=== PATIENT | male | born 1940 | race Caucasian/White ===

== ENCOUNTER → 2016-09-25 | Outpatient (CLI) | payer MEDICARE ==
[2016-09-25 14:56] LABS: Basophils # (A) 0.1 k/uL (0-0.2); Basophils % (A) 1 %; CH 31.6; Eosinophils # (A) 0.4 k/uL (0-0.7); Eosinophils % (A) 5 %; HDW 2.74; Luc # (Auto) 0.23; Luc % (Auto) 3; Lymphocytes # (A) 2.1 k/uL (1.0-4.8); Lymphocytes % (A) 30 %; MCH 30.9 pg (25.0-35.0); MCV 96.6 fL (80.0-100.0); Mean Platelet Volume 7.3; Monocytes # (A) 0.5 k/uL (0-1.0); Monocytes % (A) 8 %; Neutrophils # (A) 3.7 k/uL (1.3-7.7); Neutrophils % (A) 53 %; RBC 5.17 m/uL (4.30-5.90); RDW 14.6 % (11.5-15.5); WBC 6.9 k/uL (3.8-10.6); WBC (Perox) 6.37
[2016-09-25 15:02] LABS: INR 3.4 (<1.1); Prothrombin Time 32.8 sec (9.0-12.0)
[2016-09-25 15:11] LABS: Anion Gap 10 mmol/L; Blood Urea Nitrogen 21 mg/dL (9-20); Carbon Dioxide 28 mmol/L (22-30); Chloride 105 mmol/L (98-107); Non-African American GFR(MDRD) >60 (>60 ml/min/1.73 sqM); Potassium 4.5 mmol/L (3.5-5.1); Sodium 143 mmol/L (137-145)
== END | disposition home or self-care (01) ==
LOC: LABWHC1 14:34
PROVIDERS: ATTEND Internal Medicine Interventional Cardiology
DX: Z01.812 Encounter for preprocedural laboratory examination (principal); I10 Essential (primary) hypertension; I34.0 Nonrheumatic mitral (valve) insufficiency; I42.8 Other cardiomyopathies; Z79.01 Long term (current) use of anticoagulants
CPT/HCPCS: 36415; 80051; 82565; 84520; 85025; 85610

== ENCOUNTER → 2016-12-26 | Outpatient (CLI) | payer MEDICARE ==
[2016-12-26 10:19] LABS: CHCM 33.5; HCT 47.2 % (39.0-53.0); HDW 2.88; HGB 16.3 gm/dL (13.0-17.5); MCH 32.1 pg (25.0-35.0); MCHC 34.5 g/dL (31.0-37.0); Mean Platelet Volume 7.9; RBC 5.08 m/uL (4.30-5.90); RDW 14.1 % (11.5-15.5); WBC 7.1 k/uL (3.8-10.6)
[2016-12-26 10:41] LABS: Anion Gap 8 mmol/L; Blood Urea Nitrogen 19 mg/dL (9-20); Calcium 9.3 mg/dL (8.4-10.2); Carbon Dioxide 27 mmol/L (22-30); Chloride 104 mmol/L (98-107); Glucose 106 mg/dL (74-99); Non-African American GFR(MDRD) >60 (>60 ml/min/1.73 sqM); Sodium 139 mmol/L (137-145)
== END | disposition home or self-care (01) ==
LOC: LABWHC1 09:32
PROVIDERS: ATTEND Internal Medicine Clinical Cardiac Electrophysiology
DX: I50.9 Heart failure, unspecified (principal)
CPT/HCPCS: 36415; 80048; 85027

== ENCOUNTER → 2016-12-30 | Outpatient (CLI) | payer MEDICARE ==
[2016-12-30 11:54] LABS: Anion Gap 9 mmol/L; Blood Urea Nitrogen 18 mg/dL (9-20); Carbon Dioxide 27 mmol/L (22-30); Chloride 102 mmol/L (98-107); Non-African American GFR(MDRD) >60 (>60 ml/min/1.73 sqM); Potassium 5.5 mmol/L (3.5-5.1); Sodium 138 mmol/L (137-145)
== END | disposition home or self-care (01) ==
LOC: LABWHC1 11:08
PROVIDERS: ATTEND Internal Medicine Interventional Cardiology
DX: E87.5 Hyperkalemia (principal)
CPT/HCPCS: 36415; 80051; 82565; 84520

== ENCOUNTER 2017-01-06 12:23 | Day surgery (SDC) | payer MEDICARE ==
[2017-01-02 11:13] VITALS: BMI 28.3
[~2017-01-06 12:23] MED LIST: HYDROmorphone 0.5 MG/0.5 ML SYRINGE IVP PRN; LACTATED RINGERS 1,000 ML IV SCH; MIDAZOLAM 2 MG/2 ML VIAL IV PRN; ONDANSETRON 4 MG/2 ML VIAL IVP ONE; SODIUM CHLORIDE 0.9% 1,000 ML IV SCH; ceFAZolin 2 GM in SODIUM CHLORIDE 0.9% 100 ML IVPB ONE
[2017-01-06 13:20] LABS: INR 2.1 (<1.2); Prothrombin Time 20.5 sec (9.0-12.0)
[2017-01-06] MEDS ORDERED: IV FLUID CONTINUATION 1,000 ML IV ONE (14:20)
[2017-01-06] MEDS ORDERED: MIDAZOLAM 2 MG/2 ML VIAL ONE (14:20)
[2017-01-06] MEDS ORDERED: LIDOCAINE 1% INJ 10MG/ML (20 ML MDV) ONE (14:20)
[2017-01-06] MEDS ORDERED: PROPOFOL 10 MG/ML 20 ML VIAL IV ONE (14:20)
[2017-01-06] MEDS ORDERED: fentaNYL (PF) 50 MCG/ML 2 ML AMP ONE (14:20)
[2017-01-06] MEDS ORDERED: MEPERIDINE 50 MG/ML SYRINGE ONE (14:20)
[2017-01-06] MEDS ORDERED: LIDOCAINE 2% INJ 20 MG/ML SQ ONE ×2 (15:08→15:18)
[2017-01-06] MEDS: ceFAZolin 1,000 MG in SODIUM CHLORIDE 0.9% IRRIGATIO 250 ML IRRIGATION ONE ×2 (15:12→16:28)
[2017-01-06] MEDS ORDERED: IOHEXOL 350 MG/ML 50ML BOTTLE INJ ONE (15:40)
--- NOTE | 2017-01-06 17:33 | P.HPCAR ---
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 Rather there is been progressively worsening over the years in his left ventricular systolic function. 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 today for heart failure management, management of bradycardia and risk of sudden cardiac in the future Plan Maximize heart failure medications and beta blockers See full dictation faxed from the office Physical Exam Vitals: Vital Signs Temp Pulse Resp BP Pulse Ox 01/06/17 12:59 97.9 F 95 20 137/75 95 Intake and Output 01/06/17 01/06/17 01/06/17 06:59 14:59 22:59 Intake Total 450 100 Balance 450 100 Intake: IV 450 100 Past Medical History Past Medical History: Atrial Fibrillation, Cancer, Chest Pain / Angina, Eye Disorder, Hearing Disorder / Deafness, Hyperlipidemia, Musculoskeletal Disorder , Skin Disorder, Sleep Apnea/CPAP/BIPAP Additional Past Medical History / Comment(s): DIZZINESS, NEUROPATHY IN FEET, LOSES BALANCE. SOB @times, USES CPAP. HX CA SKIN. TORN BICEP MUSCLE NATE, ALONG W/ ROTATOR CUFF TEARS. RASH RT UPPER ARM, uses CPAP, see DR Edgar H & P , currently infected molar-supposed to start antibiotic History of Any Multi-Drug Resistant Organisms: None Reported Past Surgical History: Bowel Resection, Heart Catheterization, Hernia Repair, Orthopedic Surgery Additional Past Surgical History / Comment(s): LT KNEE. CARDIOVERSION, IAN Past Anesthesia/Blood Transfusion Reactions: Motion Sickness Smoking Status: Former smoker - Past Family History Mother Family Medical History: No Reported History Physical Examination Vital Signs Temp Pulse Resp BP Pulse Ox 01/06/17 12:59 97.9 F 95 20 137/75 95 Intake and Output 01/06/17 01/06/17 01/06/17 06:59 14:59 22:59 Intake Total 450 100 Balance 450 100 Intake: IV 450 100 Results 01/06/17 12:53 Coagulation 01/06/17 Range/Units 12:53 PT 20.5 H (9.0-12.0) sec Comprehensive Metabolic Panel 01/06/17 Range/Units 12:53 Potassium 4.6 (3.5-5.1) mmol/L Current Medications Generic Name Dose Route Start Last Admin Trade Name Freq PRN Reason Stop Dose Admin Hydromorphone HCl 0.5 mg 01/06/17 08:04 Dilaudid Syringe IVP 01/07/17 08:05 Q5M PRN Pain Control Sodium Chloride 1,000 mls @ 20 mls/hr 01/06/17 08:04 Saline 0.9% IV .Q24H SRIRAM Lactated Ringer's 1,000 mls @ 20 mls/hr 01/06/17 08:04 Lactated Ringers IV .Q24H SRIRAM Midazolam HCl 2 mg 01/06/17 08:04 Versed IV 01/07/17 08:05 ONCE PRN Anxiety Intake and Output 01/06/17 01/06/17 01/06/17 06:59 14:59 22:59 Intake Total 450 100 Balance 450 100 Intake: IV 450 100 01/06/17 12:53
[2017-01-06] MEDS ORDERED: HYDROcodone/APAP 5-325MG 1 EACH TAB PO PRN (17:36)
[2017-01-06] MEDS ORDERED: ACETAMINOPHEN TAB 325 MG TAB PO PRN (17:36)
[2017-01-06] MEDS ORDERED: ACETAMINOPHEN IV (For NPO) 1,000 MG in EMPTY BAG 1 BAG IVPB ONE (17:45)
[2017-01-06 17:53] VITALS: RESP 18
[2017-01-06] MEDS: METOPROLOL SUCCINATE (ER) 100 MG TAB.ER.24H PO SCH (18:28)
--- NOTE | 2017-01-06 18:32 | CE ---
CARDIAC ELECTROPHYSIOLOGY REPORT 76 -year-old female patient of Dr. Gilma Jones and Dr. Sheehan who has severe cardiomyopathy, predominantly nonischemic with class 2-3 heart failure symptoms and severe tachybrady syndrome with severe bradycardia necessitating reduction in dose of beta blockers. He underwent a Bi-V ICD implantation today. He has permanent atrial fibrillation. Patient brought to the EP lab in a fasting state. Written informed consent was obtained prior to the procedure. The left shoulder area was prepped and draped as per protocol. 1% lidocaine used for local anesthesia. 4 cm incision was made parallel to the deltopectoral groove. A 1.5 cm medial to the incision was carried down to the level of the pectoralis muscle. A subfascial pocket was made. Hemostasis was assured. The left axillary vein was accessed at 2 separate points under fluoroscopy and via appropriately-sized introducer sheaths 2 leads were positioned. The RV lead was positioned just close to the RV apex. This was a [employer] unit leader, model #[id number], 58 cm in length and serial number [id number]. The R-waves were 8.9 mV, pacing impedance was 643 ohms, pacing threshold 0.7 V at 0.5 milliseconds. 10v test was negative. The LV lead was positioned in the anterior vein. The coronary sinus was tortuous, both at the origin of the coronary sinus os as well as in the mid coronary sinus. He had a middle cardiac vein, posterolateral vein, a small lateral vein and a large anterior vein and the anterior was targeted and the lead was placed in a very stable position with excellent thresholds and sensing and without any diaphragmatic stimulation. R-waves 27 millivolts, pacing impedance 1460 ohms, threshold 1.25 V at 0.5 milliseconds. 10 volt test was negative. Both leads were secured to the underlying pectoralis fascia using 2 nonabsorbable sutures. The pocket was irrigated with antibiotic solution. Leads were connected to generator. The leads were connected to the generator ([employer] model number CD 3369-40 Q serial #[id number]). The leads and the generator were then placed in the subfascial pocket. The wound was closed in 3 layers and dressed per protocol. PROGRAMMING: The device was programmed according to programming. In addition VVT programming with an LV offset of 15 milliseconds was programmed. Please note the atrial port was plugged. The device was secured to the underlying pectoralis muscle. Patient tolerated the procedure well without acute complication. RESULT: Successful Bi-V ICD implantation for permanent atrial fibrillation with tachybrady syndrome. Congestive heart failure class 2-3 with progressively worsening symptoms. Nonischemic cardiomyopathy with underlying nonobstructive coronary artery disease, moderate mitral regurgitation. PLAN: Maximize beta blockers. Patient also has a history of hyperkalemia, hopefully with IV pacing and with Bi-V pacing his renal perfusion may improve. Coumadin will be on hold for 24 hours. MMODL / IJN: [id number] /
[2017-01-06] MEDS ORDERED: ASPIRIN 81 MG PO SCH (21:00)
[2017-01-06] MEDS ORDERED: PRAVASTATIN SODIUM 40 MG TAB PO SCH (21:00)
[2017-01-06] MEDS ORDERED: LOSARTAN 50 MG TAB PO SCH (21:00)
[2017-01-06] MEDS: ceFAZolin 2 GM in SODIUM CHLORIDE 0.9% 100 ML IVPB SCH (21:39)
[2017-01-07] MEDS: ceFAZolin 2 GM in SODIUM CHLORIDE 0.9% 100 ML IVPB SCH ×3 (03:29→13:56)
--- NOTE | 2017-01-07 07:49 | XR ---
EXAMINATION TYPE: XR chest 2V DATE OF EXAM: 01/07/2017 COMPARISON: NONE HISTORY: Post pacemaker insertion for arrhythmia. TECHNIQUE: Frontal and lateral views of the chest are obtained. FINDINGS: There is chronic parenchymal change without suspicious focal air space opacity, pleural ef fusion, or pneumothorax seen. The cardiac silhouette size is within normal limits. There is dual spring d pacemaker/AICD with defibrillator lead in the right ventricle and pacer lead in the coronary sinus. The osseous structures are intact. IMPRESSION: New dual lead pacemaker with leads in right ventricle and coronary sinus. No evidence of complication related to pacemaker placement.
[2017-01-07] MEDS: METOPROLOL SUCCINATE (ER) 100 MG TAB.ER.24H PO SCH (08:31)
[2017-01-07 11:38] VITALS: BP 103/67; PULSE 71; TEMP 97.6
--- NOTE | 2017-01-07 12:39 | P.DS ---
Providers Attending physician: Jose Cruz Edgar Primary care physician: Stated None Hospital Course: Patient is doing well. No chest discomfort no shortness of breath lying comfortably in bed no hematoma no bruising Breath sounds are normal no rhonchi no crackles Heart sounds are normal no rub no gallop Blood pressure 106/64 mmHg pulse rate in the 70s, afebrile 97.6F Impression Predominant nonischemic cardio myopathy, permanent atrial fibrillation with bradycardia, left bundle branch block morphology status post biventricular ICD Biventricular ICD function is within normal limits, chest x-ray report reviewed Plan Discharge home after completion of IV antibiotics and follow-up in the office in [address] Jones in about 7-10 days for maximization of rate controlling medications Metoprolol tartrate has been discontinued, started on metoprolol succinate 100 mg by mouth daily. Plan - Discharge Summary New Discharge Prescriptions: No Action Pravastatin Sodium [Pravachol] 40 mg PO HS Metoprolol Tartrate [Lopressor] 50 mg PO BID Warfarin [Coumadin] 5 mg PO SUWEFR Losartan [Cozaar] 50 mg PO HS Warfarin [Coumadin] 7.5 mg PO MOTUTHSA Aspirin EC [Ecotrin Low Dose] 81 mg PO HS Neuro B-800 2 tab PO DAILY Discharge Medication List Aspirin EC [Ecotrin Low Dose] 81 mg PO HS 09/30/16 [History] Losartan [Cozaar] 50 mg PO HS 09/30/16 [History] Metoprolol Tartrate [Lopressor] 50 mg PO BID 09/30/16 [History] Pravastatin Sodium [Pravachol] 40 mg PO HS 09/30/16 [History] Warfarin [Coumadin] 5 mg PO SUWEFR 09/30/16 [History] Warfarin [Coumadin] 7.5 mg PO MOTUTHSA 09/30/16 [History] Neuro B-800 2 tab PO DAILY 01/02/17 [History] Follow up Appointment(s)/Referral(s): Roger Jones MD [STAFF PHYSICIAN] - 1 Week (Office to call with appointment. )
== END 2017-01-07 15:30 | disposition home or self-care (01) ==
LOC: CATHEP 12:23 → 3OBS 16:46 → CATHEP 01-07 15:30
PROVIDERS: ATTEND Internal Medicine Clinical Cardiac Electrophysiology
DX: I49.5 Sick sinus syndrome (principal); I48.2 Chronic atrial fibrillation; Z79.01 Long term (current) use of anticoagulants; Z00.6 Encounter for examination for normal comparison and control in clinical research program; I42.0 Dilated cardiomyopathy; I44.7 Left bundle-branch block, unspecified; I34.0 Nonrheumatic mitral (valve) insufficiency; Z95.0 Presence of cardiac pacemaker; Z87.891 Personal history of nicotine dependence; I11.0 Hypertensive heart disease with heart failure; I50.22 Chronic systolic (congestive) heart failure; Z82.49 Family history of ischemic heart disease and other diseases of the circulatory system; E78.5 Hyperlipidemia, unspecified; G47.30 Sleep apnea, unspecified; Z99.89 Dependence on other enabling machines and devices; K04.7 Periapical abscess without sinus; Z79.82 Long term (current) use of aspirin; Z79.899 Other long term (current) drug therapy; Z88.8 Allergy status to other drugs, medicaments and biological substances
CPT/HCPCS: 33225; 33249; 84132; 85610; 71020; C1769 ×3; C1892; C1730; C1900; C1777; C1882; J2001 ×2; J2250; J2175; J0690 ×3; J3010; J0131; J2704; Q9967

== ENCOUNTER → 2017-10-01 | Outpatient (CLI) | payer MEDICARE ==
[2017-10-01 14:53] LABS: Calcium 9.1 mg/dL (8.4-10.2); Potassium 4.9 mmol/L (3.5-5.1)
== END | disposition home or self-care (01) ==
LOC: LABWHC1 13:26
PROVIDERS: ATTEND Internal Medicine Clinical Cardiac Electrophysiology
DX: I48.91 Unspecified atrial fibrillation (principal)
CPT/HCPCS: 36415; 80048; 84443

== ENCOUNTER 2017-11-03 12:02 | Day surgery (SDC) | payer MEDICARE ==
[2017-10-31 13:16] VITALS: BMI 28.2
[2017-11-03] MEDS ORDERED: ceFAZolin IN SWFI 2 GM/20 ML SYRINGE IVP STA (12:13)
[2017-11-03] MEDS: SODIUM CHLORIDE 0.9% 1,000 ML IV SCH (12:34)
[2017-11-03 12:44] LABS: Basophils % (A) 0 %; Eosinophils # (A) 0.1 k/uL (0-0.7); Eosinophils % (A) 1 %; HCT 46.3 % (39.0-53.0); HGB 15.2 gm/dL (13.0-17.5); Lymphocytes % (A) 18 %; MCH 30.6 pg (25.0-35.0); MCHC 32.8 g/dL (31.0-37.0); MCV 93.1 fL (80.0-100.0); Mean Platelet Volume 7.1; Monocytes # (A) 0.9 k/uL (0-1.0); Monocytes % (A) 8 %; Neutrophils # (A) 7.9 k/uL (1.3-7.7); Neutrophils % (A) 70 %; Platelet Count 235 k/uL (150-450); RBC 4.97 m/uL (4.30-5.90); RDW 13.8 % (11.5-15.5); WBC 11.3 k/uL (3.8-10.6)
[2017-11-03 12:54] LABS: INR 2.8 (<1.2); Prothrombin Time 25.4 sec (9.0-12.0)
[2017-11-03 13:06] LABS: Calcium 9.2 mg/dL (8.4-10.2); Potassium 4.7 mmol/L (3.5-5.1)
[2017-11-03] MEDS ORDERED: fentaNYL (PF) 50 MCG/ML 2 ML AMP ONE (16:37)
[2017-11-03] MEDS ORDERED: MIDAZOLAM 2 MG/2 ML VIAL ONE (16:37)
[2017-11-03] MEDS ORDERED: LIDOCAINE 1% INJ 10MG/ML (20 ML MDV) ONE (16:51)
[2017-11-03] MEDS ORDERED: LIDOCAINE 1% INJ 10MG/ML (20 ML MDV) SQ ONE (17:19)
[2017-11-03] MEDS ORDERED: ACETAMINOPHEN IV (For NPO) 1,000 MG in EMPTY BAG 1 BAG IVPB ONE (17:53)
[2017-11-03] MEDS ORDERED: ACETAMINOPHEN TAB 325 MG TAB PO PRN (17:53)
[2017-11-03] MEDS ORDERED: HYDROcodone/APAP 5-325MG 1 EACH TAB PO PRN (17:53)
--- NOTE | 2017-11-03 17:58 | P.PCN ---
Preoperative Diagnosis: Indication for the procedure A. fib with RVR refractory to drug therapy despite 400 mg of metoprolol succinate Very low Bi V pacing percentage Procedure: Device interrogation with reprogramming prior to the procedure AV Node Ablation/modification. Device interrogation with reprogramming postprocedure Patient was brought to the EP lab in a fasting state. Written, informed consent was obtained prior to the procedure. Access was obtained, sheath placed in right femoral vein. 1. Preprocedure device interrogation and reprogramming Device interrogation with reprogramming performed. Rate responsiveness was turned off and the pacing rate was reprogrammed to a backup mode prior to ablation. Tachycardia detections turned off. Lead impedance is documented, sensing and pacing thresholds performed prior to the procedure Backup pacing, VVI 40 bpm 3. AV node ablation A Mapping/Ablation catheter was placed and right-sided AV node radiofrequency ablation/modification was performed. Complete heart block was achieved with occasional junctional escape rhythm above 40 bpm 4. Device programming postprocedure Post ablation, device reprogramming was performed. Base Pacing rate was programmed to 90 bpm. Patient's device was reprogrammed and the interrogated. RF mode turned on Vascular sheaths were removed at the end of the procedure, hemostasis was assured, the patient was then transferred to recovery room/telemetry in stable condition. Conclusions: Successful ablation of the AV node. Plan: Pacing at 90 bpm for at least 3 weeks. Telemetry monitoring for 24-48 hours. Continue anticoagulation. Patient tolerated the procedure well without any acute complications Anesthesia: MAC Condition: stable Disposition: observation
[2017-11-03] MEDS ORDERED: WARFARIN 5 MG TAB PO SCH (18:15)
[2017-11-03] MEDS: METOPROLOL SUCCINATE (ER) 100 MG TAB.ER.24H PO SCH (20:08)
[2017-11-03] MEDS ORDERED: LOSARTAN 50 MG TAB PO SCH (21:00)
[2017-11-03] MEDS ORDERED: CITALOPRAM HYDROBROMIDE 10 MG TAB PO SCH (21:00)
[2017-11-03] MEDS ORDERED: PRAVASTATIN SODIUM 40 MG TAB PO SCH (21:00)
[2017-11-04 04:27] VITALS: PULSE 90
[2017-11-04] MEDS: SODIUM CHLORIDE 0.9% 1,000 ML IV SCH (05:44)
[2017-11-04 07:27] VITALS: BP 121/81; RESP 18; TEMP 98.4
--- NOTE | 2017-11-04 08:36 | P.DS ---
Providers Attending physician: Jose Cruz Edgar Primary care physician: Ross [facility], [facility] Course: Patient is doing well. He is sitting up comfortably in bed. No chest discomfort no shortness of breath no palpitations. His groins have healed well On examination he is afebrile 98.4F, pulse rate 90 has programmed Blood pressure 121/81 mmHg Breath sounds are clear no rhonchi no crackles Heart sounds are regular no murmurs or gallop Abdomen is soft Impression Permit atrial fibrillation Cardio myopathy with at least class II congestive heart failure Status post eye ventricular ICD in the past A. fib with RVR with poor rate control despite high dose beta blockers AV junction modification to facilitate 100% Bi V pacing to maximize heart failure management/therapies Kulkarni line discharge home today in follow-up in the device clinic in 2 weeks for bilateral total ICD reprogramming Follow Dr. Jones as previously scheduled Patient Condition at Discharge: Stable Plan - Discharge Summary New Discharge Prescriptions: New Metoprolol Succinate [Toprol Xl] 100 mg PO BID #90 tab.er.24h Discontinued Metoprolol Tartrate [Lopressor] 100 mg PO TID No Action Pravastatin Sodium [Pravachol] 40 mg PO HS Warfarin [Coumadin] 5 mg PO MOTHSA Warfarin [Coumadin] 7.5 mg PO SUTUWEFR Losartan [Cozaar] 50 mg PO HS Citalopram Hydrobromide [CeleXA] 10 mg PO HS Acetaminophen [Tylenol Extra Strength] 500 mg PO Q12H PRN PRN Reason: Pain Discharge Medication List Pravastatin Sodium [Pravachol] 40 mg PO HS 09/30/16 [History] Warfarin [Coumadin] 5 mg PO MOTHSA 09/30/16 [History] Warfarin [Coumadin] 7.5 mg PO SUTUWEFR 09/30/16 [History] Acetaminophen [Tylenol Extra Strength] 500 mg PO Q12H PRN 10/31/17 [History] Citalopram Hydrobromide [CeleXA] 10 mg PO HS 10/31/17 [History] Losartan [Cozaar] 50 mg PO HS 10/31/17 [History] Metoprolol Succinate [Toprol Xl] 100 mg PO BID #90 tab.er.24h 11/03/17 [Rx] Follow up Appointment(s)/Referral(s): Roger Jones MD [STAFF PHYSICIAN] - 2 Weeks (Device clinic follow-up in 2 weeks for ICD reprogramming and a groin check Follow-up with Dr. Jones as previously scheduled) Activity/Diet/Wound Care/Special Instructions: Post EP study - Ablation instructions 1. Keep access sites dry for 2 days. 2. No heavy lifting or straining for 2 days. 3. Avoid bending the hips repeatedly for 2 days. 4. You may go up and down stairs slowly Call if the following is noted 1. Bleeding, increasing swelling or pain at the access sites. 2. Increasing chest discomfort, especially upon taking a deep breath. 3. Increasing shortness of breath, at rest or with exertion. 4. Undue cough / phlegm 5. Difficulty or pain while swallowing. 6. Pain or change in color in the extremities. 7. Fever, chills, rigors. 8. Increasing headache or neurologic symptoms. 9. Dizziness, fainting, palpitations Reduce metoprolol to succinate to 100 mg by mouth daily Discharge Disposition: HOME SELF-CARE
[2017-11-04] MEDS: METOPROLOL SUCCINATE (ER) 100 MG TAB.ER.24H PO SCH (08:42)
[2017-11-04] MEDS ORDERED: WARFARIN 7.5 MG TAB PO SCH (18:00)
== END 2017-11-04 10:38 | disposition home or self-care (01) ==
LOC: CATHEP 12:02 → 6PED 18:01 → 3OBS 18:06 → CATHEP 11-04 10:38
PROVIDERS: ATTEND Internal Medicine Clinical Cardiac Electrophysiology
DX: I48.2 Chronic atrial fibrillation (principal); I42.9 Cardiomyopathy, unspecified; I11.0 Hypertensive heart disease with heart failure; I50.9 Heart failure, unspecified; Z87.891 Personal history of nicotine dependence; G47.33 Obstructive sleep apnea (adult) (pediatric); Z79.01 Long term (current) use of anticoagulants; Z79.899 Other long term (current) drug therapy; Z95.810 Presence of automatic (implantable) cardiac defibrillator
CPT/HCPCS: 93650; 93281; 80048; 85025; 85610; C1894; C1769 ×2; C1733; C1893; J2001; J0690

== ENCOUNTER → 2017-11-04 | Outpatient (CLI) | payer MEDICARE ==
--- NOTE | 2017-11-04 18:08 | CONS ---
CONSULTATION REASON FOR CONSULTATION: Consultation note for sleep apnea. This is a 77-year-old male patient, who is coming to see me regarding his obstructive sleep apnea. He was diagnosed having obstructive sleep apnea many years back and currently is using a Resmet air sense which is set at a pressure of 10 cm of water. The patient is known to have atrial fibrillation. He has undergone cardiac ablation. He is also known to have hypertension and hyperlipidemia. His weight has been essentially stable over the past 10 years. He is currently on a CPAP pressure of 10 on. The compliance data from his CPAP machine indicates that the patient has been utilizing his CPAP on average of 8 hours per night and his CPAP use for more than 4 hours is 100% and his air leak is in order of 14 L/minute. His AHI while on treatment is down to 0.9. He is currently using a Clayton FX small nose mask. No excessive fatigue or sleepiness during the day. No snoring while on CPAP therapy. No apneas while on CPAP therapy. No insomnia. No choking or gasping for air. No grinding. No sleepwalking. No dry mouth. No anxiety or panic attacks. No palpitation. No heartburn. No restlessness in lower extremities. He goes to bed around 9:30 p.m., wakes up 4:30-5:30 a.m. in the morning and he is well refreshed. He does not fall asleep while driving his car or while he does any other activities. PAST MEDICAL HISTORY: 1. Obstructive sleep apnea. 2. Atrial fibrillation. 3. Hypertension. 4. Hyperlipidemia. PAST SURGICAL HISTORY: Includes surgical ablation of atrial fibrillation. AICD implantation and cataracts. DRUG ALLERGIES: DRUG ALLERGIES ARE TO VERAPAMIL. OUTPATIENT MEDICATION LIST: Includes warfarin 7.5 mg 1 and half tablets on Friday, Friday, Wednesdays and Fridays and 1 tab the rest of the week, Cozaar 50 mg p.o. daily, Lopressor 100 mg p.o. twice a day, Pravachol 40 mg p.o. daily and citalopram 10 mg p.o. daily. SOCIAL HISTORY: Nonsmoker. No history of alcohol, no history of IV drugs. FAMILY HISTORY: Negative for sleep apnea. REVIEW OF SYSTEMS: 12-point review of system was done. Positive findings are mentioned above history of present illness. Otherwise negative. PHYSICAL EXAMINATION: BP is 104/72, pulse 80, respirations 16, temp 97.6. Saturation 96% on room air. Neck size 17 inches. BMI 28.4. [place] score is 810. Weight is 208. Height is 5 feet 11 inches. General appearance: Calm, comfortable. Head is atraumatic, normocephalic. NECK: Supple. Mallampati class IV. There is no goiter or neck masses. LUNGS: Clear to auscultation. HEART: Sounds regular rate and rhythm. Normal S1, S2. No S3. No murmurs. ABDOMEN: Soft, nontender. No organomegaly. EXTREMITIES: No edema. No cyanosis or clubbing. Neurologic: Alert and oriented x3. No focal neurological deficits. PSYCHIATRIC: Negative for anxiety or depression. IMPRESSION: 1. Obstructive sleep apnea successfully treated with a CPAP pressure of 10 cm of water. The patient continues to benefit from the treatment and he demonstrates excellent clinical response and compliance. 2. History of atrial fibrillation. 3. Hyperlipidemia. 4. Hypertension. PLAN: No need for any adjustment on the CPAP machine. Continue CPAP at the same level of pressure which is 10 cm of water. The newest CPAP supplies including the tubing and the mask and the patient is using a Clayton FX small size. Implement good sleep hygiene measures. Maintain his current body weight. Follow up with Cardiology. See me back in a few years time regarding obstructive sleep apnea. His treatment is successful for now. BUCKY / MARJAN: [id number] /
== END | disposition home or self-care (01) ==
LOC: SLEEP 16:17
PROVIDERS: ATTEND Internal Medicine Critical Care Medicine
DX: G47.33 Obstructive sleep apnea (adult) (pediatric) (principal); E78.5 Hyperlipidemia, unspecified; I10 Essential (primary) hypertension; Z86.79 Personal history of other diseases of the circulatory system; Z99.89 Dependence on other enabling machines and devices; Z79.01 Long term (current) use of anticoagulants; Z79.899 Other long term (current) drug therapy; Z88.8 Allergy status to other drugs, medicaments and biological substances
CPT/HCPCS: 99211